=== PATIENT | female | born 1940 | race Caucasian/White ===

== ENCOUNTER → 2018-09-10 | Outpatient (CLI) | payer MEDICARE, OTHER ==
[~2018-09-10] MED LIST: IOPAMIDOL 370 MG/ML 200 ML INFUS..BTL INJ ONE; SODIUM CHLORIDE 0.9% 100 ML 100 ML ONE
[2018-09-10 09:47] LABS: BLOOD UREA NITROGEN 16 mg/dL (7-26); BUN/CREATININE RATIO 21 (6-25); CREATININE, SERUM 0.78 mg/dL (0.57-1.11); EST GLOMERULAR FILTRATION RATE > 60 ML/MIN (60-)
--- NOTE | 2018-09-10 11:03 | Diagnostic Imaging Report ---
CT of the chest, with contrast. History: History of aneurysm and CHF. Comparison: None available. Technique: Multidetector CT scanning of the chest was performed during the early arterial phase from the level of the thoracic inlet to the upper abdomen after intravenous administration of contrast. Coronal and sagittal multiplanar reformations were obtained. Findings: Aorta and proximal branches: There is no evidence of dissection. A tricuspid aortic valve is present. Scattered atherosclerotic calcification is present. There is no evidence of intramural or periaortic hematoma. There is preservation of the sinotubular junction. The innominate, proximal subclavian, and common carotid arteries are normal in branching order and ectatic. The aortic arch and descending thoracic aorta are normal. Measurements of the aorta are as follows: 3.5 cm at the sinuses of Valsalva, 4.3 cm in the mid ascending aorta, 3.7 cm in the distal ascending aorta, 2.9 cm in the mid aortic arch, 3.5 cm in the proximal descending aorta, 3.0 cm in the mid descending aorta, 2.7 cm at the level of the diaphragmatic hiatus. Chest: The heart and pulmonary arteries are normal in size. Surgical clips are present in the right thyroid bed. Multiple hypodense nodules are present in the left lobe of the thyroid, the largest in the upper pole measuring 1.7 cm. The mediastinum is normal without evidence of adenopathy. There is bibasilar dependent atelectasis. The lungs are otherwise normal without evidence of consolidation or pleural effusion. Limited evaluation of the upper abdomen demonstrates normal adrenal glands. Degenerative changes are present within the thoracic spine. Chronic appearing mild anterior wedge compression deformity of the T11 vertebral body is noted. Surgical hardware is present in the lower cervical spine. IMPRESSION: 1. Ectatic ascending aorta. No evidence of dissection. 2. Left thyroid nodules, the largest measuring 1.7 cm. Recommend further evaluation with thyroid ultrasound. 3. No acute pulmonary finding. Signed by: Mehdi Francis on 09/10/2018 10:59 AM
== END ==
LOC: CT 08:37
PROVIDERS: ATTEND Internal Medicine
DX: I50.9 Heart failure, unspecified (principal); I71.2 Thoracic aortic aneurysm, without rupture; E04.2 Nontoxic multinodular goiter
CPT/HCPCS: 36415; 71275; 82565; 84520; Q9967

== ENCOUNTER → 2018-12-30 | Outpatient (CLI) | payer MEDICARE, OTHER ==
[~2018-12-30] MED LIST changes: -SODIUM CHLORIDE 0.9% 100 ML 100 ML ONE; +SODIUM CHLORIDE 0.9% 50ML 50 ML ONE
[2018-12-30 09:15] LABS: BLOOD UREA NITROGEN 20 mg/dL (7-26); BUN/CREATININE RATIO 23 (6-25); CREATININE, SERUM 0.87 mg/dL (0.57-1.11); EST GLOMERULAR FILTRATION RATE > 60 ML/MIN (60-)
--- NOTE | 2018-12-30 11:25 | Diagnostic Imaging Report ---
CT SOFT TISSUE NECK W HISTORY: Left neck mass COMPARISON: Chest CT 09/10/2018 TECHNIQUE: Axial CT images were obtained through the neck with intravenous, iodine based contrast. Coronal and sagittal reconstructions obtained from the axial data. One or more of the following dose reduction techniques were used: Automated exposure control, adjustment of the mA and/or kV according to patient size, and/or utilization of iterative reconstruction technique. DISCUSSION: Heterogeneous, multinodular left thyroid lobe is grossly unchanged. The largest nodule measures up to 1.4 cm in transverse dimension. Right thyroidectomy changes are present. The visualized upper aerodigestive tract is unremarkable. No radiographically significant cervical adenopathy is seen. The bilateral submandibular and posterior left parotid glands are mildly atrophic. A hypodense nodule in the lower left parotid gland measures 1.2 cm. Otherwise, the right parotid gland is unremarkable. Mild to moderate bilateral carotid bulb calcified plaque is present. The retail loan originator assistant, parapharyngeal, posterior cervical, and perivertebral spaces are unremarkable. Bilateral ocular lens replacement. Carotid siphon calcifications are present. Otherwise, the visualized intracranial compartment and orbits are grossly unremarkable. The paranasal sinuses are clear. There are mild to moderate degenerative changes throughout the spine. ACDF changes at C6-C7 are present. The upper lungs are unremarkable. Ectatic aortic arch without gross chronic calcifications is partially visualized. Prominent paratracheal lymph nodes measure up to 1.4 cm short axis. IMPRESSION: 1. Grossly unchanged, heterogeneous multinodular left thyroid lobe can be further evaluated with thyroid ultrasound. 2. No radiographically significant cervical adenopathy. The visualized upper aerodigestive tract is unremarkable. 3. Incidental 1.2 cm hypodense lower left parotid nodule may be a pleomorphic adenoma. 4. Mild atrophy of the bilateral submandibular and posterior left parotid glands. 5. Mildly prominent paratracheal lymph nodes. Signed by: Dr. Jesus Hurd M.D. on 12/30/2018 11:22 AM
== END ==
LOC: CT 08:22
PROVIDERS: ATTEND Internal Medicine
DX: R22.1 Localized swelling, mass and lump, neck (principal)
CPT/HCPCS: 36415; 70491; 82565; 84520; Q9967

== ENCOUNTER → 2019-11-05 | Outpatient (CLI) | payer MEDICARE, OTHER ==
--- NOTE | 2019-11-05 11:28 | Diagnostic Imaging Report ---
EXAM: US THYROID DATE: 11/05/2019 9:59 AM INDICATION: Multinodular goiter COMPARISON: CT soft tissue neck from 12/30/2018 FINDINGS: The right thyroid lobe is surgically absent. No sonographic evidence abnormality is identified within the right thyroidectomy bed. The isthmus measures 2 mm in thickness and appears unremarkable. The left thyroid lobe measures 3.5 x 1.7 x 1.5 cm. There is a 1.2 x 0.6 x 1.4 cm isoechoic solid nodule nodule identified within the superior left thyroid (TI-RADS 3). There is a 1.6 x 1.2 x 1.5 cm isoechoic solid nodule identified within the mid left thyroid lobe (TI-RADS 3). . There is a 1.7 x 1.1 x 1.5 cm isoechoic solid nodule identified within the inferior left thyroid lobe (TI-RADS 3). These nodules demonstrate no significant hypervascularity. IMPRESSION: Status post right thyroidectomy. Multinodular left thyroid as detailed above. In this patient with history of multinodular goiter and right thyroidectomy, correlation with prior ultrasound examination is recommended. Signed by: Dr. Zack Koch MD on 11/05/2019 11:24 AM
== END ==
LOC: US 09:13
PROVIDERS: ATTEND Internal Medicine
DX: E04.2 Nontoxic multinodular goiter (principal)
CPT/HCPCS: 76536

== ENCOUNTER → 2021-01-10 | Outpatient (CLI) | payer MEDICARE, OTHER | LOC: US 08:57 | PROVIDERS: ATTEND Internal Medicine | DX: E04.2 Nontoxic multinodular goiter (principal) | CPT/HCPCS: 76536 ==

== ENCOUNTER → 2023-04-02 | Outpatient (REF) | payer MEDICARE, OTHER | LOC: US 08:10 | PROVIDERS: ATTEND Internal Medicine | DX: E04.2 Nontoxic multinodular goiter (principal) | CPT/HCPCS: 76536 ==